=== PATIENT | female | born 1995 | race Caucasian/White ===

== ENCOUNTER → 2020-08-23 | Outpatient (CLI) | payer OTHER ==
--- NOTE | 2020-08-23 14:10 | RAD ---
Study: US OB >14 WEEKS Clinical Indication: Uterine size date discrepancy. Comparison: None. Technique: Multiple grayscale images, color Doppler, and M-mode images of the uterus are obtained. Findings: Single intrauterine gestation in breech presentation. The placenta is posterior in location without e vidence of placenta previa. The amount of amniotic fluid appears appropriate. Amniotic fluid index i s 14.2 cm. Cervical length is 3.2 cm. Biometrical data: BPD = 3.97 cm for 18 weeks 0 days. HC = 14.59 cm for 17 weeks 5 days. AC = 11.89 cm for 17 weeks 4 days. FL = 2.52 cm for 17 weeks 4 days. CI ratio = 83.9. (Normal range low to high 74-83) HC/AC ratio = 1.23. FL/HC ratio = 17.3. FL/AC ratio = 21.2. Overall, the estimated sonographic gestational age is 17 weeks 5 days for an estimated date of delive ry of 01/26/2021. The clinical estimated date of delivery is 01/22/2021. Estimated weight is 2 04 grams. A 4 chamber heart is identified with positive cardiac activity. The estimated heart rate is 152 beats per minute. Bilateral upper and lower extremities are identified. There is a three-vessel cord with cord insertion visualized. stomach and urinary bladder are identified. Both kidneys are seen. The spine and brain are unremarkable. The left ventricular outflow tract, profile and gender are not visualized. No gross anatomic abnormalities are identified. Impression: 1. Single live intrauterine gestation with estimated sonographic gestational age of 17 weeks 5 days corresponding to an estimated delivery date of 01/26/2021. Clinically estimated delivery date of 01/11. weight estimate of 204 grams. 2. Nonvisualized left ventricular outflow tracts, profile and gender due to patient positioning and early gestational age. Recommend routine 20 week anatomy scan. 3. Borderline high CI ratio suggests brachycephaly. This can be reevaluated at 20 week anatomy scan. Electronically signed by: Johnny Terry MD (08/23/2020 2:08 PM) [facility]
== END ==
LOC: US 11:19
PROVIDERS: ATTEND Obstetrics & Gynecology
DX: O26.842 Uterine size-date discrepancy, second trimester (principal); Z3A.17 17 weeks gestation of pregnancy
CPT/HCPCS: 76805

== ENCOUNTER → 2020-10-10 | Outpatient (CLI) | payer OTHER ==
--- NOTE | 2020-10-10 12:12 | RAD ---
EXAM: Obstetrics sonogram. HISTORY: anatomy survey completion. TECHNIQUE: Sonographic imaging of the gravid uterus was performed. COMPARISON: 08/23/2020. FINDINGS: There is a single imaging fetus in breech presentation with a normal heart rate of 150 bpm. There is a posterior placenta without evidence of placenta previa. The amniotic fluid axes normal at 12.4 cm. The cervix is closed and measures 3.1 cm. The biparietal diameter is 5.6 cm, corresponding with 23 weeks and 2 days. The head circumference is 21.6 cm, corresponding with 23 weeks and 5 days. The abdominal circumference is 20.3 cm, correspondin g with 25 weeks and 0 days. The femoral length is 4.6 cm, corresponding with 25 weeks and 1 day. The estimated gestational age patient combined ultrasound measurements is 24 weeks and 2 days and the estimated weight is 734 g. The estimated due date is 01/28/2021. There is a four-chamber heart with normal outflow tracts. The brain is unremarkable. The facial profile is not well se en. However, there is a normal-appearing nasal bone. The remainder the anatomy is assessed on t he prior study. IMPRESSION: 1. Single intrauterine fetus in breech presentation with a normal heart rate and gestational age base d on ultrasound measurements of 24 weeks 2 days. The gestational age based on LMP is 25 weeks and 1 d ay. 2. Four-chamber heart with normal appearing outflow tracts. The facial profile is still n ot well seen. However, there is a normal-appearing nasal bone. The remainder the anatomy is ass essed on the prior study. Electronically signed by: Yamini Causey MD (10/10/2020 12:09 PM) [id number]
== END ==
LOC: US 08:55
PROVIDERS: ATTEND Obstetrics & Gynecology
DX: O32.1XX0 Maternal care for breech presentation, not applicable or unspecified (principal); Z3A.24 24 weeks gestation of pregnancy
CPT/HCPCS: 76815

== ENCOUNTER → 2020-11-07 | Outpatient (CLI) | payer OTHER | LOC: LAB 08:14 | PROVIDERS: ATTEND Obstetrics & Gynecology | DX: Z34.92 Encounter for supervision of normal pregnancy, unspecified, second trimester (principal) | CPT/HCPCS: 36415; 82951 ==

== ENCOUNTER 2021-09-08 09:25 | Emergency (ER) | payer OTHER ==
[~2021-09-08] VITALS: Ht 165.1 cm; Wt 110.0 kg
[2021-09-08] MEDS ORDERED: IV NORMAL SALINE 1,000ML 1,000 ML IV SCH (10:00)
--- NOTE | 2021-09-08 10:09 | PHYS DOC ---
Past History Past Surgical History: Cholecystectomy, Tonsillectomy Alcohol Use: None Adult General Chief Complaint Chief Complaint: URINARY FREQUENCY HPI HPI Patient is a 26 year old female who presents with complaint of dysuria, increased urinary frequency, and left flank pain. The patient states that her symptoms started approximately 2 weeks ago primarily with increased urinary frequency and dysuria. Since onset she has had developed worsening left lower abdominal and left flank pain. Denies vomiting or fever. States that she has had similar symptoms in the past with kidney infection. Also notes previous history of kidney stones. States she tried taking ibuprofen for symptoms but notes no significant improvement today. States that she is also having difficulty finding a position of comfort due to her pain, but she has come to the emergency department for further evaluation. Denies any abnormal vaginal discharge or vaginal bleeding. [] Review of Systems Review of Systems Constitutional: Denies fever or chills [] Eyes: Denies change in visual acuity, redness, or eye pain [] HENT: Denies nasal congestion or sore throat [] Respiratory: Denies cough or shortness of breath [] Cardiovascular: Denies chest pain or edema [] GI: Abdominal pain, left flank pain, denies nausea, vomiting, bloody stools or diarrhea [] : Dysuria, increased urinary frequency, denies vaginal bleeding or vaginal discharge [] Musculoskeletal: Denies back pain or joint pain [] Integument: Denies rash or skin lesions [] Neurologic: Denies headache, focal weakness or sensory changes [] All other systems were reviewed and found to be within normal limits, except as documented in this note. Current Medications Current Medications Current Medications Medications (Trade) Dose Ordered Sig/Carito Start Time Stop Time Status Last Admin Dose Admin Sodium Chloride 1,000 ml @ 1,000 mls/hr Q1H 09/08/21 10:00 09/08/21 10:59 UNV 09/08/21 10:01 1,000 MLS/HR Allergies Allergies Allergies Coded Allergies Type Severity Reaction Last Updated Verified No Known Drug Allergies 09/08/21 No Physical Exam Physical Exam Constitutional: Alert, afebrile, no acute distress. [] HENT: Normocephalic, atraumatic, bilateral external ears normal, oropharynx moist, no oral exudates, nose normal. [] Eyes: PERRLA, EOMI, conjunctiva normal, no discharge. [] Neck: Normal range of motion, no tenderness, supple, no stridor. [] Cardiovascular:Heart rate regular rhythm, no murmur [] Lungs & Thorax: Bilateral breath sounds clear to auscultation [] Abdomen: Bowel sounds normal, soft, left lower quadrant tenderness to palpation, no guarding or rebound tenderness, no masses, no pulsatile masses. [] Skin: Warm, dry, no erythema, no rash. [] Back: Left CVA tenderness, denies midline tenderness. [] Extremities: No tenderness, no cyanosis, no clubbing, ROM intact, no edema. [] Neurologic: Alert and oriented X 3, normal motor function, normal sensory function, no focal deficits noted. [] Current Patient Data Vital Signs Vital Signs Date Time Temp Pulse Resp B/P (MAP) Pulse Ox O2 Delivery O2 Flow Rate FiO2 09/08/21 09:38 98.7 92 22 152/93 (112) 100 Room Air Lab Results Laboratory Tests Test 09/08/21 08:56 09/08/21 09:34 09/08/21 09:58 Bedside Urine HCG, Qualitative hcg negative Urine Collection Type Unknown Urine Color Yellow Urine Clarity Hazy Urine pH 6.0 Urine Specific [place] >=1.030 Urine Protein Neg Urine Glucose (UA) Neg mg/dL Urine Ketones (Stick) Neg mg/dL Urine Blood Small Urine Nitrite Neg Urine Bilirubin Neg Urine Urobilinogen Dipstick 0.2 mg/dL Urine Leukocyte Esterase Neg Urine RBC Occ /HPF Urine WBC 1-4 /HPF Urine Squamous Epithelial Cells Many /LPF Urine Bacteria Few /HPF Urine Mucus Mod /LPF White Blood Count 8.7 x10^3/uL Red Blood Count 4.63 x10^6/uL Hemoglobin 13.1 g/dL Hematocrit 40.0 % Mean Corpuscular Volume 87 fL Mean Corpuscular Hemoglobin 28 pg Mean Corpuscular Hemoglobin Concent 33 g/dL Red Cell Distribution Width 13.1 % Platelet Count 286 x10^3/uL Neutrophils (%) (Auto) 59 % Lymphocytes (%) (Auto) 30 % Monocytes (%) (Auto) 9 % Eosinophils (%) (Auto) 2 % Basophils (%) (Auto) 1 % Neutrophils # (Auto) 5.1 x10^3uL Lymphocytes # (Auto) 2.6 x10^3/uL Monocytes # (Auto) 0.8 x10^3/uL Eosinophils # (Auto) 0.1 x10^3/uL Basophils # (Auto) 0.1 x10^3/uL Sodium Level 135 mmol/L Potassium Level 4.0 mmol/L Chloride Level 101 mmol/L Carbon Dioxide Level 27 mmol/L Anion Gap 7 Blood Urea Nitrogen 15 mg/dL Creatinine 0.7 mg/dL Estimated GFR (Cockcroft-Gault) 101.1 BUN/Creatinine Ratio 21 Glucose Level 90 mg/dL Calcium Level 8.8 mg/dL Total Bilirubin 0.5 mg/dL Aspartate Amino Transf (AST/SGOT) 14 U/L Alanine Aminotransferase (ALT/SGPT) 33 U/L Alkaline Phosphatase 69 U/L Total Protein 7.1 g/dL Albumin 3.6 g/dL Albumin/Globulin Ratio 1.0 Lipase 55 U/L Current Medications Medications (Trade) Dose Ordered Sig/Carito Route PRN Reason Start Time Stop Time Status Last Admin Dose Admin Sodium Chloride 1,000 ml @ 1,000 mls/hr Q1H IV 09/08/21 10:00 09/08/21 11:13 DC 09/08/21 10:01 Ketorolac Tromethamine (Toradol 15mg Vial) 15 mg 1X ONCE IVP 09/08/21 11:00 09/08/21 11:13 DC 09/08/21 11:15 Ceftriaxone Sodium 1 gm/ Sodium Chloride 50 ml @ 100 mls/hr 1X ONCE IV 09/08/21 11:30 09/08/21 11:59 EKG EKG Not performed [] Radiology/Procedures Radiology/Procedures [address] [address] IMAGING REPORT Signed PATIENT: ALBERTAJULY MACCOUNT: [id number] : 1995 LOCATION: ER AGE: 26 SEX: F EXAM STATUS: REG ER ORD. PHYSICIAN: KATHRYN DAVIS MD REASON: LLQ, left flank pain, dysuria PROCEDURE: CT ABDOMEN PELVIS WO CONTRAST PQRS Compliance Statement: One or more of the following individualized dose reduction techniques were utilized for this examination: 1. Automated exposure control 2. Adjustment of the mA and/or kV according to patient size 3. Use of iterative reconstruction technique CT abdomen/pelvis without contrast 09/08/2021 10:07 AM INDICATION: Left lower quadrant pain. Left flank pain. Dysuria COMPARISON: None available TECHNIQUE: Multiple axial CT images of the abdomen and pelvis were obtained without intravenous contrast. Coronal and sagittal reformats are provided. FINDINGS: There is a 4 mm groundglass nodule in the right middle lobe (series 2, image 5). Findings favor infectious/inflammatory etiology. Heart size within normal limits. Evaluation of solid abdominal viscera is limited by lack of intravenous contrast. Liver, spleen, adrenal glands, and pancreas are normal in appearance. Gallbladder is surgically absent. The abdominal aorta is normal in course and caliber. There are no pathologically enlarged lymph nodes in the abdomen and pelvis. There is no abdominal free fluid. There is no free intraperitoneal air. Small and large bowel are normal in caliber. There is no evidence for bowel obstruction. There are no pericolonic inflammatory changes. A normal, nondilated appendix is visualized without adjacent inflammatory changes. The kidneys are relatively symmetric in appearance. There is no suspicious renal mass within the limitations of a noncontrast examination. There is no hydronephrosis. There are no calculi within the kidneys, ureters or urinary bladder. Urinary bladder is within normal limits given degree of distention. Uterus and adnexa are normal by CT. No suspicious osseous abnormality is identified. IMPRESSION: No acute abnormality identified within the abdomen and pelvis. 4 mm groundglass nodule in the right middle lobe favors infectious/inflammatory etiology. Electronically signed by: Emely Candelaria MD (09/08/2021 10:39 AM) [id number] DICTATED AND SIGNED BY: EMELY CANDELARIA MD DATE: 09/08/21 103 CC: KATHRYN ADVIS MD; PCP,NO ~ [] Heart Score C/O Chest Pain: No Risk Factors: Risk Factors: DM, Current or recent (<one month) smoker, HTN, HLP, family history of CAD, obesity. Risk Scores: Risk Factors: DM, Current or recent (<one month) smoker, HTN, HLP, family history of CAD, obesity. Course & Med Decision Making Course & Med Decision Making Pertinent Labs and Imaging studies reviewed. (See chart for details) Blood work and urinalysis reviewed. Patient noted to have small amount of white blood cells and bacteria in urine but was negative for leukoesterase or nitrite. CT imaging was performed which showed no evidence of ureteral stone or acute inflammatory process within the abdomen or pelvis. Patient's blood work is largely unremarkable. Patient was administered IV Toradol for pain symptoms. Given patient's complaints of flank pain and dysuria, the patient will be treated empirically with Rocephin for urinary tract infection. Prescribed 10- day course of Vantin for outpatient treatment. Recommend close follow-up with primary doctor in the next 3 days for reevaluation if symptoms or not improving and return to the emergency department for any worsening symptoms. Patient voiced understanding and in agreement with treatment plan. [] Dragon Disclaimer Dragon Disclaimer This electronic medical record was generated, in whole or in part, using a voice recognition dictation system. Departure Departure: Impression: Primary Impression: Urinary tract infection Additional Impressions: Abdominal pain Acute left flank pain Disposition: HOME / SELF CARE / HOMELESS Condition: STABLE Referrals: PCP,NO (PCP) Patient Instructions: Abdominal Pain (Nonspecific), Flank Pain, Urinary Tract Infection Additional Instructions: Follow-up with your primary care provider in 3 days for reevaluation. Return to the emergency department for any worsening symptoms. Scripts Cefpodoxime Proxetil (CEFPODOXIME PROXETIL) 200 Mg Tablet 1 TAB PO BID, #20 TAB Prov: KATHRYN DAVIS MD 09/08/21 Problem Qualifiers Primary Impression: Urinary tract infection Urinary tract infection type: site unspecified Hematuria presence: without hematuria Qualified Codes: N39.0 - Urinary tract infection, site not specified Additional Impressions: Abdominal pain Abdominal location: left lower quadrant Qualified Codes: R10.32 - Left lower quadrant pain KATHRYN DAVIS MD September 08, 2021 10:09
[2021-09-08 10:19] LABS: BASO # 0.1 x10^3/uL (0.0-0.2); BASO % 1 % (0-3); EOS # 0.1 x10^3/uL (0.0-0.7); EOS % 2 % (0-3); HEMOGLOBIN 13.1 g/dL (12.0-15.5); LYMPH # 2.6 x10^3/uL (1.0-4.8); LYMPH % 30 % (24-48); MEAN CORPUSCULAR HEMOGLOBIN 28 pg (25-35); MEAN CORPUSCULAR HGB CONC 33 g/dL (31-37); MEAN CORPUSCULAR VOLUME 87 fL (79-100); MONO # 0.8 x10^3/uL (0.0-1.1); MONO % 9 % (0-9); NEUT # 5.1 x10^3uL (1.8-7.7); NEUT % 59 % (31-73); PLATELET COUNT 286 x10^3/uL (140-400); RED BLOOD COUNT 4.63 x10^6/uL (3.50-5.40); RED CELL DISTRIBUTION WIDTH 13.1 % (11.5-14.5); WHITE BLOOD COUNT 8.7 x10^3/uL (4.0-11.0)
[2021-09-08 10:24] LABS: CALCIUM 8.8 mg/dL (8.5-10.1); CREATININE 0.7 mg/dL (0.6-1.0); GFR 101.1
[2021-09-08 10:29] LABS: ALBUMIN 3.6 g/dL (3.4-5.0); TOTAL BILIRUBIN 0.5 mg/dL (0.2-1.0); TOTAL PROTEIN 7.1 g/dL (6.4-8.2)
[2021-09-08 10:33] LABS: BACTERIA,URINE FEW /HPF (0-FEW); CLARITY,URINE HAZY; COLOR,URINE YELLOW; GLUCOSE,URINE NEG (NEG); NITRITE,URINE NEG (NEG); RBC,URINE OCC /HPF (0-2); UROBILINOGEN,URINE 0.2 mg/dL (0.2 mg/dL)
[2021-09-08 10:34] LABS: SQUAMOUS EPITHELIAL CELL,UR MANY /LPF
--- NOTE | 2021-09-08 10:41 | RAD ---
PQRS Compliance Statement: One or more of the following individualized dose reduction techniques were utilized for this examinat ion: 1. Automated exposure control 2. Adjustment of the mA and/or kV according to patient size 3. Use of iterative reconstruction technique CT abdomen/pelvis without contrast 09/08/2021 10:07 AM INDICATION: Left lower quadrant pain. Left flank pain. Dysuria COMPARISON: None available TECHNIQUE: Multiple axial CT images of the abdomen and pelvis were obtained without intravenous contr ast. Coronal and sagittal reformats are provided. FINDINGS: There is a 4 mm groundglass nodule in the right middle lobe (series 2, image 5). Findings favor infec tious/inflammatory etiology. Heart size within normal limits. Evaluation of solid abdominal viscera i s limited by lack of intravenous contrast. Liver, spleen, adrenal glands, and pancreas are normal in appearance. Gallbladder is surgically absent. The abdominal aorta is normal in course and caliber. There are no pathologically enlarged lymph nodes in the abdomen and pelvis. There is no abdominal free fluid. There is no free intraperitoneal air. Small and large bowel are normal in caliber. There is no evidence for bowel obstruction. There are no pericolonic inflammatory changes. A normal, nondilated appendix is visualized without adjacent infla mmatory changes. The kidneys are relatively symmetric in appearance. There is no suspicious renal mass within the limi tations of a noncontrast examination. There is no hydronephrosis. There are no calculi within the kid neys, ureters or urinary bladder. Urinary bladder is within normal limits given degree of distention. Uterus and adnexa are normal by C T. No suspicious osseous abnormality is identified. IMPRESSION: No acute abnormality identified within the abdomen and pelvis. 4 mm groundglass nodule in the right middle lobe favors infectious/inflammatory etiology. Electronically signed by: Frieda Candelaria MD (09/08/2021 10:39 AM) [id number]
[2021-09-08] MEDS ORDERED: KETOROLAC 15 MG/ML VIAL. IVP ONE (11:00)
[2021-09-08] MEDS ORDERED: CEFP200T PO ×2 (11:24→11:48)
[2021-09-08] MEDS ORDERED: cefTRIAXone SODIUM 1 GM VIAL ONE (11:30)
[2021-09-08 11:37] VITALS: BP 120/73
== END 2021-09-08 12:08 | disposition home or self-care (01) ==
LOC: ER 09:25
DX: N39.0 Urinary tract infection, site not specified (principal); Z90.49 Acquired absence of other specified parts of digestive tract
CPT/HCPCS: 36415; 74176; 80053; 81001; 81025; 83690; 85025; 96361; 96365; 96375; 99284; J0696; J1885; J7030